=== PATIENT | male | born 1965 | race Two or more races ===

== ENCOUNTER 2021-11-26 23:10 | Emergency (ER) | payer OTHER ==
[~2021-11-26] VITALS: Ht 167.6 cm; Wt 97.5 kg
[2021-11-26] MEDS ORDERED: ZESTRIL5 MG PO (23:26)
[2021-11-26] MEDS ORDERED: PROAIR RESPICL90 MCG IH (23:27)
[2021-11-27] MEDS ORDERED: OSEL75CA PO (03:59)
[2021-11-27] MEDS ORDERED: ALBUTEROL2.5 MG/3 M IH (03:59)
[2021-11-27] MEDS ORDERED: ZYNCOF 20-400120 ML PO (03:59)
[2021-11-27] MEDS ORDERED: DOLOGESIC 500-1 EACH PO (03:59)
[2021-11-27] MEDS ORDERED: IPRAT-ALBUT 0.5-3 ML IH (03:59)
== END 2021-11-27 04:03 ==
LOC: ER 23:10
DX: J10.1 Influenza due to other identified influenza virus with other respiratory manifestations (principal); J45.909 Unspecified asthma, uncomplicated; Z20.822 Contact with and (suspected) exposure to COVID-19